=== PATIENT | male | born 1955 | race Caucasian/White ===

== ENCOUNTER 2021-12-21 17:16 | Emergency (ER) | payer OTHER ==
[2021-12-21] MEDS ORDERED: Ketorolac Tromethamine 30 MG/ML VIAL ONE ×2 (19:56→19:57)
[2021-12-21] MEDS ORDERED: Morphine 4 MG/ML VIAL ONE (20:20)
[2021-12-21] MEDS ORDERED: Cyclobenzaprine 10 MG TAB ONE (21:27)
[2021-12-21] MEDS ORDERED: Metoprolol Tartrate 50 MG TAB ONE (21:30)
== END 2021-12-21 21:44 | disposition home or self-care (01) ==
LOC: CSHERS 17:16
DX: G89.29 Other chronic pain (principal); M54.50 Low back pain, unspecified; E78.5 Hyperlipidemia, unspecified; I10 Essential (primary) hypertension
CPT/HCPCS: J1885; J2270

== ENCOUNTER 2021-12-23 13:35 | Emergency (ER) | payer OTHER ==
[2021-12-23] MEDS ORDERED: Ketorolac Tromethamine 30 MG/ML VIAL ONE (15:26)
== END 2021-12-23 16:44 | disposition home or self-care (01) ==
LOC: CSHERS 13:35
DX: M54.32 Sciatica, left side (principal); I10 Essential (primary) hypertension; E78.5 Hyperlipidemia, unspecified; Z79.899 Other long term (current) drug therapy
CPT/HCPCS: 72170; 96372; J1885